=== PATIENT | female | born 1990 | race Caucasian/White ===

== ENCOUNTER 2017-02-01 21:58 | Emergency (ER) | payer BC ==
[2017-02-02] MEDS ORDERED: PROCHLORPERAZINE INJ 5 MG/ML 2 ML VIAL IV PRN (01:26)
[2017-02-02] MEDS ORDERED: Ketorolac INJ* 30 MG/ML 1 ML VIAL IV PUSH ONE (01:26)
[2017-02-02] MEDS ORDERED: NS 0.9% 1000 ML* 1,000 ML IV ONE (01:27)
[2017-02-02] MEDS ORDERED: diPHENhydraMINE IV* 50 MG/ML 1 ml VIAL (BENADRYL) IV ONE (01:27)
--- NOTE | 2017-02-02 02:07 | ED ---
Headache - HPI Summary HPI Summary: Pt arrives to ED with CC of headache for a month. She notes to seeing her PCP who ordered MRI. MRI was normal but later upon CT SCAN, showed polyp in the nasal sinuses. She states over the last few days pain has been worse and not controlled with sumitriptan, which she was prescribed by her PCP. She takes it at first onset of RAWLS, yet pain remains. RAWLS is located in the frontal lobe region, is intermittent, worse with bright lights and has no associated N/V or aura or scotomas. RAWLS are described as throbbing. RAWLS is not worst of life, but rates a 9/10. She denies previous migraine history. She has never had RAWLS, sinus infections or other health problems. She takes OCP daily, but denies other medications. She denies recent or worsening stress and denies smoking, alcohol or other drug use. RAWLS are not worse at a specific time of day and nothing has made the pain better. She states these are affecting her daily activities and she has not been referred to see a neurologist or ENT yet. She denies pain over temporal area and has no family history of migraines, temporal arteritis, tension RAWLS or brain lesions/tumors. - History Of Current Complaint Hx Obtained From: Patient Onset/Duration: Gradual Onset, Started weeks ago Initially Headache Was: Initial Pain Scale(0-10)= - 9, Moderate Currently Pain Is: Current Pain Scale(0-10)= - 9, Moderate Timing: Intermittent, Lasting:, Hours Character: Throbbing Location of Headache: Frontal Aggravating Factor: Position Change, Bright Lights Allevating Factors: Rest - Risk Factors SAH Risk Factors: Negative Meningitis Risk Factors: Negative SDH Risk Factors: Negative Temporal Arteritis Risk Factors: Female, <Layla Joe - Last Filed: 02/02/17 02:00> <Chao Chaudhary - Last Filed: 02/03/17 07:23> - History Of Current Complaint Chief Complaint: EDHeadache Stated Complaint: HEADACHES [id number] Time Seen by Provider: 02/02/17 01:14 - Allergies/Home Medications Allergies/Adverse Reactions: Allergies Allergy/AdvReac Type Severity Reaction Status Date / Time No Known Allergies Allergy Verified 02/01/17 23:18 Home Medications: Home Medications Birthcontrol 1 tab PO DAILY 02/01/17 [History Confirmed 02/01/17] SUMAtriptan TAB* [Imitrex TAB*] 50 mg PO Q6H 02/01/17 [History Confirmed ] PMH/Surg Hx/FS Hx/Imm Hx Previously Healthy: Yes - Surgical History Hx Anesthesia Reactions: No - Immunization History Hx Pertussis Vaccination: No Immunizations Up to Date: No Infectious Disease History: No Infectious Disease History: Denies: Traveled Outside the [place] in Last 30 Days - Social History Occupation: Employed Full-time Lives: With Family Alcohol Use: None Hx Substance Use: No Substance Use Type: Reports: None Hx Tobacco Use: No Do You Chew or Dip Tobacco: No <TatyanaLayla - Last Filed: 02/02/17 02:00> Review of Systems Constitutional: Negative Positive: Photophobia ENT: Negative Respiratory: Negative Gastrointestinal: Negative Positive: no symptoms reported, see HPI Positive: Headache Psychological: Normal All Other Systems Reviewed And Are Negative: Yes <Layla Joe - Last Filed: 02/02/17 02:00> Physical Exam - Summary Physical Exam Summary: The patient is well-nourished in no acute distress and in no acute pain. The skin is warm and dry and skin color reflects adequate perfusion. HEENT: The head is normocephalic and atraumatic. The pupils are equal and reactive. The conjunctivae are clear and without drainage. Nares are patent and without drainage. Mouth reveals moist mucous membranes and the throat is without erythema and exudate. The external ears are intact. The ear canals are patent and without drainage. The tympanic membranes are intact. Neck is supple with full range of motion and non-tender. There are no carotid bruits. There is no neck vein distension. Respiratory: Chest is non-tender. Lungs are clear to auscultation and breath sounds are symmetrical and equal. Cardiovascular: Heart is regular rate and rhythm. There is no murmur or rub auscultated. There is no peripheral edema and pulses are symmetrical and equal. Abdomen: The abdomen is soft and non-tender. There are normal bowel sounds heard in all four quadrants and there is no organomegaly palpated. Musculoskeletal: There is no back pain noted. Extremities are non-tender with full range of motion. There is good capillary refill. There is no peripheral edema or calf tenderness elicited. Neurological: Patient is alert and oriented to person, place and time. The patient has symmetrical motor strength in all four extremities. Cranial nerves are grossly intact. Deep tendon reflexes are symmetrical and equal in all four extremities. Psychiatric: The patient has an appropriate affect and does not exhibit any anxiety or depression. Triage Information Reviewed: Yes Vital Signs On Initial Exam: Initial Vitals Temp Pulse Resp BP Pulse Ox 98 F 87 18 113/73 97 02/01/17 22:06 02/01/17 22:06 02/01/17 22:06 02/01/17 22:06 02/01/17 22:06 Vital Signs Reviewed: Yes Appearance: Positive: Well-Appearing, No Pain Distress, Well-Nourished Skin: Positive: Warm, Skin Color Reflects Adequate Perfusion Head/Face: Positive: Normal Head/Face Inspection Eyes: Positive: EOMI, KIEL, Conjunctiva Clear Neck: Positive: Supple, No Lymphadenopathy Respiratory/Lung Sounds: Positive: Clear to Auscultation, Breath Sounds Present Cardiovascular: Positive: Normal, RRR, Pulses are Symmetrical in both Upper and Lower Extremities Abdomen Description: Positive: Soft Musculoskeletal: Positive: Normal, Strength/ROM Intact Neurological: Positive: Normal, Sensory/Motor Intact, Alert, Oriented to Person Place, Time, CN Intact II-III, Normal Gait, Facial Symmetry, Speech Normal Psychiatric: Positive: Normal AVPU Assessment: Alert - Kopperl Coma Scale Best Eye Response: 4 - Spontaneous Best Motor Response: 6 - Obeys Commands Best Verbal Response: 5 - Oriented <Layla Joe - Last Filed: 02/02/17 02:00> Vital Signs On Initial Exam: Initial Vitals Temp Pulse Resp BP Pulse Ox 98 F 87 18 113/73 97 02/01/17 22:06 02/01/17 22:06 02/01/17 22:06 02/01/17 22:06 02/01/17 22:06 <Chao Chaudhary - Last Filed: 02/03/17 07:23> Diagnostics - Vital Signs Vital Signs Temp Pulse Resp BP Pulse Ox 02/01/17 23:32 83 97 02/01/17 23:30 114/79 02/01/17 23:16 98.9 F 87 17 110/84 100 02/01/17 22:06 98 F 87 18 113/73 97 <Layla Joe - Last Filed: 02/02/17 02:00> - Vital Signs Vital Signs Temp Pulse Resp BP Pulse Ox 02/02/17 04:13 84 18 112/63 02/02/17 04:12 84 98 02/02/17 04:00 112/63 02/02/17 03:57 108/70 02/02/17 03:32 89/41 02/02/17 03:06 81 100 02/02/17 03:00 95 100 02/02/17 02:33 58 99/65 98 02/02/17 02:00 112/62 02/02/17 01:31 82 108/69 97 02/02/17 01:00 82 104/67 97 02/02/17 00:56 81 103/72 99 02/02/17 00:54 80 76/49 98 02/02/17 00:30 77 100/60 97 02/02/17 00:01 81 113/74 97 02/02/17 00:00 80 97 02/01/17 23:32 83 97 02/01/17 23:30 114/79 02/01/17 23:16 98.9 F 87 17 110/84 100 02/01/17 22:06 98 F 87 18 113/73 97 - Laboratory Lab Results: Lab Results 02/02/17 02/02/17 Range/Units 02:30 02:30 WBC 8.6 (3.5-10.8) 10^3/ul RBC 4.39 (4.0-5.4) 10^6/ul Hgb 13.3 (12.0-16.0) g/dl Hct 39 (35-47) % MCV 89 (80-97) fL MCH 30 (27-31) pg MCHC 34 (31-36) g/dl RDW 13 (10.5-15) % Plt Count 285 (150-450) 10^3/ul MPV 8 (7.4-10.4) um3 Neut % (Auto) 42.1 (38-83) % Lymph % (Auto) 41.1 (25-47) % [place] % (Auto) 10.1 H (1-9) % Eos % (Auto) 6.3 H (0-6) % Baso % (Auto) 0.4 (0-2) % Absolute Neuts (auto) 3.6 (1.5-7.7) 10^3/ul Absolute Lymphs (auto) 3.5 (1.0-4.8) 10^3/ul Absolute Monos (auto) 0.9 H (0-0.8) 10^3/ul Absolute Eos (auto) 0.5 (0-0.6) 10^3/ul Absolute Basos (auto) 0 (0-0.2) 10^3/ul Absolute Nucleated RBC 0.01 10^3/ul Nucleated RBC % 0.1 ESR 9 (0-14) mm/Hr Sodium 136 (133-145) mmol/L Potassium 3.7 (3.5-5.0) mmol/L Chloride 102 (101-111) mmol/L Carbon Dioxide 27 (22-32) mmol/L Anion Gap 7 (2-11) mmol/L BUN 13 (6-24) mg/dL Creatinine 0.83 (0.51-0.95) mg/dL Est GFR ( Amer) 107.7 (>60) Est GFR (Non-Af Amer) 83.8 (>60) BUN/Creatinine Ratio 15.7 (8-20) Glucose 120 H (70-100) mg/dL Calcium 9.2 (8.6-10.3) mg/dL Total Bilirubin 0.30 (0.2-1.0) mg/dL AST 16 (13-39) U/L ALT 12 (7-52) U/L Alkaline Phosphatase 47 (34-104) U/L Total Protein 7.2 (6.4-8.9) g/dL Albumin 4.1 (3.2-5.2) g/dL Globulin 3.1 (2-4) g/dL Albumin/Globulin Ratio 1.3 (1-3) Result Diagrams: 02/02/17 02:30 02/02/17 02:30 Lab Statement: Any lab studies that have been ordered have been reviewed, and results considered in the medical decision making process. <Chao Chaudhary - Last Filed: 02/03/17 07:23> Re-Evaluation - Re-Evaluation First Eval Re-Evaluation Time: 03:58 - Patient is feeling better. She will be discharged home to follow up with her PCP and with ENT. Change: Improved <Chao Chaudhary - Last Filed: 02/03/17 07:23> Headache Course/Dx - Course Course Of Treatment: Neuro exam WNL. Patient expresses photophobia on physical exam. Patient given 1L fluids, 10mg compazine, 50mg benadryl, 30mg toradol. Patient signed out to Dr. Chaudhary at 2:30am. Patient made aware of transfer of care. - Diagnoses Differential Diagnosis/HQI/PQRI: Epidural Hematoma, Subdural Hematoma, Migraine <Layla Joe - Last Filed: 02/02/17 02:00> <Chao Chaudhary - Last Filed: 02/03/17 07:23> - Diagnoses Provider Diagnoses: Headache Discharge - Discharge Plan Discharge Disposition Comment: Signed out to Dr. Chaudhary at 2:30am <Layla Joe - Last Filed: 02/02/17 02:00> <Chao Chaudhary - Last Filed: 02/03/17 07:23> - Discharge Plan Condition: Stable Disposition: HOME Patient Education Materials: Migraine Headache (ED) Forms: *Work Release Referrals: Otilio Castellanos MD [Medical Doctor] - Tino Randolph MD [Medical Doctor] - Additional Instructions: Follow up with PCP. Follow up with neurology and ENT.
[2017-02-02 02:43] LABS: Hematocrit 39 % (35-47); Hemoglobin 13.3 g/dl (12.0-16.0); Mean Corpuscular HGB Conc 34 g/dl (31-36); Mean Corpuscular Hemoglobin 30 pg (27-31); Mean Corpuscular Volume 89 fL (80-97); Mean Platelet Volume 8 um3 (7.4-10.4); Red Blood Count 4.39 10^6/ul (4.0-5.4); Red Cell Distribution Width 13 % (10.5-15); White Blood Count 8.6 10^3/ul (3.5-10.8)
[2017-02-02 02:56] LABS: Albumin 4.1 g/dL (3.2-5.2); BUN/Creatinine Ratio 15.7 (8-20); Calcium 9.2 mg/dL (8.6-10.3); EGFR African American 107.7 (>60); EGFR Non-African American 83.8 (>60); Globulin 3.1 g/dL (2-4); Potassium 3.7 mmol/L (3.5-5.0); Total Bilirubin 0.3 mg/dL (0.2-1.0); Total Protein 7.2 g/dL (6.4-8.9)
[2017-02-02 03:31] LABS: Erythrocyte Sed Rate 9 mm/Hr (0-14)
[2017-02-02 04:13] VITALS: BP 112/63
--- NOTE | 2017-02-02 04:16 | ED ---
Moo Denny Adam, scribed for Chao Chaudhary MD on 02/02/17 at 0400 . Progress - Progress Note Progress Note: This patient was signed out to me by the PA Layla Joe. Re-Evaluation - Re-Evaluation First Eval Re-Evaluation Time: 03:58 - Patient is feeling better. She will be discharged home to follow up with her PCP and with ENT. Change: Improved Course/Dx - Diagnoses Provider Diagnoses: Headache The documentation as recorded by the yariibMoo hendrickson Adam accurately reflects the service I personally performed and the decisions made by me, Chao Chaudhary MD.
== END 2017-02-02 04:13 | disposition home or self-care (01) ==
LOC: ED 21:58
DX: R51 Headache (principal)
CPT/HCPCS: 36415; 80053; 85025; 85652; 96360; 96374; 96375; 99283; J1200; J1885

== ENCOUNTER 2017-10-24 13:11 | Emergency (ER) | payer BC, MEDICAID ==
[2017-10-24 13:19] VITALS: BP 107/77
--- NOTE | 2017-10-24 13:20 | UC ---
Throat Pain/Nasal Wilfrid HPI - HPI Summary HPI Summary: cough congestion body aches sore throat for 2 days-- - History of Current Complaint Chief Complaint: UCRespiratory Stated Complaint: SORE THROAT Time Seen by Provider: 10/24/17 13:19 Hx Obtained From: Patient Hx Last Menstrual Period: 09/25/17 ?: No Onset/Duration: Gradual Onset, Lasting Days - 2, Still Present Severity: Mild Cough: Nonproductive Associated Signs & Symptoms: Positive: Nasal Discharge, Fever - subjective - Allergies/Home Medications Allergies/Adverse Reactions: Allergies Allergy/AdvReac Type Severity Reaction Status Date / Time No Known Allergies Allergy Verified 10/24/17 13:16 PMH/Surg Hx/FS Hx/Imm Hx Previously Healthy: Yes - Surgical History Surgical History: None - Family History Known Family History: Positive: None - Social History Occupation: Employed Part-time - [employer] Lives: With Family Alcohol Use: Rare Substance Use Type: None Smoking Status (MU): Never Smoked Tobacco Review of Systems Constitutional: Negative Skin: Negative Eyes: Negative ENT: Sore Throat, Nasal Discharge, Sinus Congestion Respiratory: Cough Cardiovascular: Negative Gastrointestinal: Negative Genitourinary: Negative Motor: Negative Neurovascular: Negative Musculoskeletal: Negative Neurological: Negative Psychological: Negative Is Patient Immunocompromised?: No All Other Systems Reviewed And Are Negative: Yes Physical Exam Triage Information Reviewed: Yes Appearance: No Pain Distress, Well-Nourished, Ill-Appearing - mild Vital Signs: Initial Vital Signs Temp 98.0 F 10/24/17 13:17 Pulse 82 10/24/17 13:17 Resp 14 10/24/17 13:17 BP 107/77 10/24/17 13:17 Pulse Ox 100 10/24/17 13:17 Vital Signs Reviewed: Yes Eye Exam: Normal Eyes: Positive: Conjunctiva Clear ENT Exam: Normal ENT: Positive: Normal ENT inspection, Hearing grossly normal, Pharynx normal, Nasal congestion, TMs normal, Uvula midline. Negative: Nasal drainage, Tonsillar swelling, Tonsillar exudate, Trismus, Muffled voice, Hoarse voice, Sinus tenderness Dental Exam: Normal Neck exam: Normal Neck: Positive: Supple, Nontender, No Lymphadenopathy Respiratory Exam: Normal Respiratory: Positive: Chest non-tender, Lungs clear, Normal breath sounds, No respiratory distress, No accessory muscle use Cardiovascular Exam: Normal Cardiovascular: Positive: RRR, No Murmur, Pulses Normal, Brisk Capillary Refill Musculoskeletal Exam: Normal Musculoskeletal: Positive: Strength Intact, ROM Intact, No Edema Neurological Exam: Normal Neurological: Positive: Alert, Muscle Tone Normal Psychological Exam: Normal Skin Exam: Normal Diagnostics - Laboratory Diagnostic Studies Completed/Ordered: RST Influenza A/B (-) Throat Pain/Nasal Course/Dx - Course Assessment/Plan: Increase fluids, ok to use otc cough and cold medications to relieve symptoms and tylenol or ibuprofen for pain - Differential Dx/Diagnosis Provider Diagnoses: URI Discharge - Discharge Plan Condition: Stable Disposition: HOME Patient Education Materials: Upper Respiratory Infection (ED) Forms: *Work Release Referrals: [facility] [Outside] - 1 Week
== END 2017-10-24 14:06 | disposition home or self-care (01) ==
LOC: UCEAST 13:11
DX: J06.9 Acute upper respiratory infection, unspecified (principal)
CPT/HCPCS: 87502; 87651; 99211; G0463

== ENCOUNTER 2018-03-10 08:56 | Day surgery (SDC) | payer MEDICAID ==
[~2018-03-10 08:56] MED LIST: Buffered Lidocaine 0.9% SYRIN* 5 ML/SYR SYRINGE INTRADERM ONE
[2018-03-10] MEDS ORDERED: fentaNYL* 50 MCG/ML 2 ML VIAL (100 MCG VIAL) ONE ×6 (10:54→13:24)
[2018-03-10] MEDS ORDERED: Midazolam* 1 MG/ML 2 ML VIAL (2 MG) ONE ×2 (10:54)
[2018-03-10] MEDS ORDERED: Gelfoam 12-7 ADSORBABL SPONGE* 1 EA SPONGE ONE ×2 (11:34)
[2018-03-10] MEDS ORDERED: Triamcinolone Acetonide* 40 MG/ML 1 ML VIAL ONE ×2 (11:34)
[2018-03-10] MEDS ORDERED: Lidocaine 2% EPI 1:200000 MPF*10-20 ML VIAL ONE ×4 (11:34→12:19)
[2018-03-10] MEDS ORDERED: Oxymetazoline 0.05% NASAL SPR* 15 ML BTL ONE ×2 (11:34)
[2018-03-10] MEDS ORDERED: Gelatin ADSORBABLE (OPHTH)* OPHTH.FILM ONE ×2 (11:34)
[2018-03-10] MEDS ORDERED: Dexamethasone IV* 4 MG/ML 1 ML (4 MG) ONE ×2 (11:57)
[2018-03-10] MEDS ORDERED: Lidocaine 2% PF * 5 ML VIAL ONE ×2 (11:57)
[2018-03-10] MEDS ORDERED: Propofol* 10 MG/ML 20 ML BTL IV PUSH ONE ×2 (11:57)
[2018-03-10] MEDS ORDERED: Ondansetron ODT TAB* 4 MG ONE ×2 (11:57)
[2018-03-10] MEDS ORDERED: Naloxone* 0.4 MG/ML 1 ML VIAL IV PRN (12:13)
[2018-03-10] MEDS ORDERED: PROCHLORPERAZINE INJ 5 MG/ML 2 ML VIAL IV PRN (12:13)
[2018-03-10] MEDS ORDERED: DiMENhydriNATE IV* 50 MG/ML VIAL IV PUSH PRN (12:13)
[2018-03-10] MEDS ORDERED: Acetaminophen TAB* 325 MG PO PRN (12:13)
[2018-03-10] MEDS: fentaNYL* 50 MCG/ML 2 ML VIAL (100 MCG VIAL) IV PRN ×5 (13:10→13:25)
[2018-03-10] MEDS ORDERED: HYDROmorphone INJ* 2 MG/ML CARPUJECT SYRINGE ONE ×2 (13:15)
[2018-03-10] MEDS: HYDROmorphone INJ* 1 MG/ML CARPUJECT SYRINGE IV PRN ×2 (13:15→13:26)
[2018-03-10] MEDS ORDERED: DiMENhydriNATE IV* 50 MG/ML VIAL ONE ×2 (13:24)
[2018-03-10 14:55] VITALS: BP 126/82
--- NOTE | 2018-03-11 10:08 | OP ---
DATE OF OPERATION: 03/10/18 - SDS DATE OF : 89 SURGEON: Martín Pichardo M.D. PRE-OP DIAGNOSES: Chronic sinusitis, nasal dyspnea, deviated nasal septum, and hypertrophied nasal turbinates. POST-OP DIAGNOSES: Chronic sinusitis, nasal dyspnea, deviated nasal septum, and hypertrophied nasal turbinates. OPERATIVE PROCEDURE: Bilateral video endoscopic maxillary antrostomy, bilateral submucosal resection of inferior turbinates and septoplasty. INDICATIONS: This 27-year-old female with long-standing history of chronic sinusitis, opacification of the maxillary antrum on CT scan with chronic nasal dyspnea and also symptoms of a deviated nasal septum with hypertrophied turbinates contributing to the symptoms of sinusitis and nasal dyspnea. The patient has failed medical management including topical nasal steroids and frequent use of oral antibiotics. DESCRIPTION OF PROCEDURE: The patient was taken to the operating room, general anesthesia was given, the patient was intubated, LMA. Nose was decongested with Afrin-soaked pledgets. Subsequently 2% lidocaine with epinephrine was infiltrated into the uncinate region and middle turbinate region into the septum and the inferior turbinates. A 0-degree telescope, 30-degree telescope, and other endoscopic sinus surgery instruments were utilized including the microshaver. We first turned our attention to the left side. The uncinate process was peeled out anteriorly. Microshaver was used to remove the uncinate and then subsequently enlargement of the antrum was carried out. Copious irrigation of the antral mucosa was carried out. Next we turned our attention to the right side. Here too again the uncinate process peeled out anteriorly. Microshaver was used to remove the uncinate process and the antrostomy was created with microshaver to enlarge and remove some of the posterior bone. Once adequate irrigation was carried out, the area between the middle turbinate and lateral nasal wall was packed with Gelfilm and Gelfoam, which was soaked with Kenalog. We then turned our attention to the septum. Next, right hemitransfixion incision created, mucoperichondrial flap was elevated, quadrangular cartilage was disarticulated along the vomer ethmoidal complex and along the posterior ethmoidal complex. A portion of the ethmoidal complex was removed, quadrangular cartilage was scored in its midline. Hemitransfixion incision was closed in a single layer. Nicole splints were applied. We then turned our attention to the inferior turbinates, submucosal resection carried out by resecting some of the inferior turbinate bone and micro shaving it away. Then subsequently cauterized the base to promote hemostasis. Once this was done, the patient was awakened, sent to the recovery room in stable condition. Instrument and sponge counts were correct. Blood loss minimal. [id number]/[facility] #: [id number] [facility] HOSPITALDelonte
== END 2018-03-10 15:16 | disposition home or self-care (01) ==
LOC: OR 08:56
PROVIDERS: ATTEND Otolaryngology
DX: J34.2 Deviated nasal septum (principal); J32.0 Chronic maxillary sinusitis; J34.3 Hypertrophy of nasal turbinates
CPT/HCPCS: 81025; A9270-GY; J1100; J1170; J1240; J2250; J2704; J3010; J3301

== ENCOUNTER 2019-02-09 14:17 | Emergency (ER) | payer SELFPAY ==
[2019-02-09 15:13] VITALS: BP 95/59
--- NOTE | 2019-02-09 15:44 | UC ---
Lower Extremity/Ankle HPI - HPI Summary HPI Summary: 28-year-old female presents with complaints of right ankle and foot pain. States approximately one week ago she slipped in the shower twisting her foot and ankle. Complains of pain over the right medial malleolus and medial foot with mild bruising. She has been able to walk and bear weight since the injury. States she has taken a couple of doses of ibuprofen 400 mg with minimal relief in pain. Denies any numbness or tingling. - History of Current Complaint Chief Complaint: UCLowerExtremity Stated Complaint: RT ANKLE Time Seen by Provider: 02/09/19 15:34 Hx Obtained From: Patient Hx Last Menstrual Period: 09/25/17 Pain Intensity: 5 - Allergies/Home Medications Allergies/Adverse Reactions: Allergies Allergy/AdvReac Type Severity Reaction Status Date / Time No Known Allergies Allergy Verified 02/09/19 15:13 Home Medications: Home Medications metFORMIN* [Glucophage 500 MG TAB *] 500 mg PO BID 02/09/19 [History Confirmed 02/09/19] PMH/Surg Hx/FS Hx/Imm Hx Previously Healthy: Yes - Surgical History Surgical History: None - Family History Known Family History: Positive: None, Other - Neg anaesthesia reaction - Social History Occupation: Employed Full-time Lives: Alone Alcohol Use: Rare Substance Use Type: None Smoking Status (MU): Never Smoked Tobacco Type: Cigarettes Have You Smoked in the Last Year: No Household Exposure Type: Cigarettes Review of Systems All Other Systems Reviewed And Are Negative: Yes Constitutional: Positive: Negative Skin: Positive: Bruising Respiratory: Positive: Negative Cardiovascular: Positive: Negative Gastrointestinal: Positive: Negative Genitourinary: Positive: Negative Motor: Negative: Weakness Neurovascular: Negative: Decreased Sensation Musculoskeletal: Positive: Other: - See HPI Neurological: Positive: Negative Is Patient Immunocompromised?: No Physical Exam - Summary Physical Exam Summary: GENERAL APPEARANCE: Well developed, well nourished, alert and cooperative, and appears to be in no acute distress. CARDIAC: Normal S1 and S2. No S3, S4 or murmurs. Rhythm is regular. There is no peripheral edema, cyanosis or pallor. Extremities are warm and well perfused. Capillary refill is less than 2 seconds. Peripheral pulses intact. LUNGS: Clear to auscultation without rales, rhonchi, wheezing or diminished breath sounds. ABDOMEN: Positive bowel sounds. Soft, nondistended, nontender. No guarding or rebound. No masses or hepatosplenomegally. MUSKULOSKELETAL: Normal muscular development. Limping gait. EXTREMITIES: Tenderness over the right medial malleolus without erythema, ecchymosis, edema, or gross deformity as well as some tenderness of the medial forefoot over the proximal first metatarsal with some mild ecchymosis without edema or gross deformity. Circulation and sensation intact. SKIN: Skin normal color, texture and turgor. Triage Information Reviewed: Yes Vital Signs: Initial Vital Signs Temp 98.1 F 02/09/19 15:08 Pulse 83 02/09/19 15:08 Resp 18 02/09/19 15:08 BP 95/59 02/09/19 15:08 Pulse Ox 99 02/09/19 15:08 Vital Signs Reviewed: Yes Diagnostics - Radiology No standard instances Radiology Interpretation Completed By: Radiologist Summary of Radiographic Findings: Order Information: FOOT RIGHT 3+ VWS. Accession Number: [id number]. CPT: 35576. INDICATION: Right foot injury. TECHNIQUE: 3 views of the right foot were obtained. FINDINGS: The bones are in normal alignment. No fracture is seen. Joint spaces appear maintained. IMPRESSION: NO EVIDENCE FOR FRACTURE. Order Information: ANKLE RIGHT 3+VWS. Accession Number: [id number]. CPT: 66348. INDICATION: Right ankle injury. TECHNIQUE: 3 views of the right ankle were obtained. FINDINGS: The bones are in normal alignment. No fracture is seen. Joint spaces appear maintained. IMPRESSION: NO EVIDENCE FOR FRACTURE. Lower Extremity Course/Dx - Course Course Of Treatment: 28-year-old female presents with complaints of right ankle and foot pain. States approximately one week ago she slipped in the shower twisting her foot and ankle. Complains of pain over the right medial malleolus and medial foot with mild bruising. She has been able to walk and bear weight since the injury. States she has taken a couple of doses of ibuprofen 400 mg with minimal relief in pain. Denies any numbness or tingling. Afebrile. Vital signs stable. Exam remarkable for tenderness over the right medial malleolus without erythema, ecchymosis, edema, or gross deformity as well as some tenderness of the medial forefoot over the proximal first metatarsal with some mild ecchymosis without edema or gross deformity. Circulation and sensation intact. X-ray of the right ankle and foot showed no acute fracture or dislocation. Recommending conservative treatment for a right ankle and foot sprain. She is to follow-up with orthopedic surgery in one week if symptoms do not improve. Anticipatory guidance and warning symptoms are reviewed with the patient. Verbalizes understanding and agrees with plan of care - Differential Dx/Diagnosis Differential Diagnosis/HQI/PQRI: Contusion, Dislocation, Fracture (Closed), Sprain Provider Diagnosis: Right ankle sprain, Right foot sprain Discharge - Sign-Out/Discharge Documenting (check all that apply): Patient Departure All imaging exams completed and their final reports reviewed: Yes - Discharge Plan Condition: Stable Disposition: HOME Patient Education Materials: Ankle Sprain (ED), Foot Sprain (ED) Forms: *Work Release Referrals: Tiffany Reyez NP [Primary Care Provider] - Mona Khan MD [Medical Doctor] - 7 Days (If no improvement in symptoms.) Additional Instructions: The x-ray performed in the clinic today showed no evidence of a fracture. I suspect that you have a sprain of the ankle and foot. Rest the ankle/foot as much as possible. Apply ice to the affected area for 15-20 minutes at least 4 times a day to help with the pain and swelling. Elevate the ankle/foot to help reduce swelling. Take acetaminophen (Tylenol) or ibuprofen (Advil, Motrin) according to directions as needed for pain. Follow up with orthopedic surgery in 7 days if symptoms do not improve. Seek immediate medical attention if you have severe pain not managed with pain medication, you are unable to walk or bear any weight, develop numbness or tingling in the foot or toes, or have any worsening of symptoms. - Billing Disposition and Condition Condition: STABLE Disposition: Home - Attestation Statements Provider Attestation: I was available for consult. Pt not seen by me.
== END 2019-02-09 16:30 | disposition home or self-care (01) ==
LOC: UCEAST 14:17
DX: S93.401A Sprain of unspecified ligament of right ankle, initial encounter (principal); S93.601A Unspecified sprain of right foot, initial encounter; X50.1XXA Overexertion from prolonged static or awkward postures, initial encounter; Y93.E1 Activity, personal bathing and showering; Y92.002 Bathroom of unspecified non-institutional (private) residence as the place of occurrence of the external cause
CPT/HCPCS: 99211; G0463